=== PATIENT | male | born 1965 | race Caucasian/White ===

== ENCOUNTER 2021-01-26 15:56 | Observation (INO) ==
[2021-01-26] MEDS ORDERED: SODIUM CHLORIDE 0.9% 500 ML IV SCH (18:00)
--- NOTE | 2021-01-26 18:04 | XRay Report ---
XR chest 1V portable HISTORY: weakness COMPARISON: 11/17/2018. FINDINGS: Cardiac silhouette remains mildly enlarged. There are low lung volumes. No new focal lung c onsolidations to suggest pneumonia. No evidence for pulmonary edema. No pleural effusions. No pneumot horax. IMPRESSION: No significant change compared to the prior study. No acute process. ACT 112: Negative or not required by law. Electronically signed by: Toni Vo M.D. 01/26/2021 6:03 PM
--- NOTE | 2021-01-26 18:05 | Emergency Department Note ---
Impression & Plan Episode of shaking, Seizure-like activity, Cough, Anemia ED Provider Note NAME: ERNIE JOHNSON AGE: 55 SEX: M : 1965 ARRIVES VIA: Walk-In INFORMANT: [Patient][] ED PROVIDER(S): [Yoseph Chatman MD] CHIEF COMPLAINT: Choking HISTORY OF PRESENT ILLNESS: The patient is a 55-year-old male presents to the ER with an episode of shaking and choking. The patient had an episode about 5 weeks ago. His heard a noise and he was found sitting with all his clothing intact on the toilet. He was red in the face and trembling, he seemed to be drooling. She thought he might be choking and performed the Heimlich. Patient seemed to start breathing again and in about 5 minutes, he was back to being himself. He did see his doctors office and is scheduled to see a GI doctor for an endoscopy, that is not until next month. Patient did have a normal ECG as an outpatient. Today, the patient had another episode about 2 hours ago. He was sitting in the passenger side of the car and he began coughing. He seemed to almost choke. He took his gum out. He then seemed to stare straight ahead and was shaking. By the time his pulled over, things seem to improve and in about 5 minutes, he was back to himself. He did not bite his tongue, there was no urinary incontinence. Patient has had coughing and choking issues for years. Mostly when he eats. His states that she thinks his esophagus may be narrowed. The patient has no history of seizure, he has no family history of a seizure disorder. His has a history of high cholesterol high and high blood pressure and takes medications for these diagnoses. REVIEW OF SYSTEMS: See HPI for pertinent positives and negatives. A total of ten systems were reviewed and were otherwise negative. PMHx/PSHx: See Below SOCIAL HISTORY: See Below. PHYSICAL EXAM: GENERAL: Patient is in no acute distress. HEENT: No acute trauma, normocephalic atraumatic, mucous membranes moist, no nasal congestion, no scleral icterus. NECK: No stridor, no adenopathy, no meningismus, trachea is midline. LUNGS: Clear to auscultation bilaterally, no wheeze, no rhonchi, breath sounds equal. HEART: Without murmurs gallops or rubs, regular rate and rhythm. ABDOMEN: Soft, nontender, bowel sounds positive, no hernias, no peritonitis. EXTREMITIES: No cyanosis or edema, full range of motion of all the joints wit hout pain or difficulty, no signs for acute trauma. NEUROLOGIC: Oriented x 3, no acute motor or sensory deficits, no focal weakness. No speech slur or facial droop. SKIN: No rash, no jaundice, no diaphoresis. Rectal: Brown stool, heme-negative. DIFFERENTIAL DIAGNOSIS: Infection, dehydration, metabolic abnormality, hypo/hyperglycemia, dysrhythmia, electrolyte disturbance, anemia, hypoxia, cardiac sources, intracerebral event, seizure, toxicologic issues, stroke, TIA, as well as other pathologies. EMERGENCY DEPARTMENT COURSE/PROCEDURES: ECG: Indication was possible dysrhythmia or seizure. The ECG shows a normal sinus rhythm with a rate of 80. QTc is 435. There is no ST elevation, no PVCs. Continuous Cardiac Monitoring: An order was placed for continuous cardiac monitoring. The monitor shows a rate of 78 with normal sinus rhythm. MEDICAL DECISION MAKING: There is no leukocytosis. The patient is anemic with a hemoglobin of 10.6. I did perform a rectal exam, the stool was brown and heme-negative. There is a normal platelet count. Creatinine mildly elevated at 1.45, no signi ficant electrolyte abnormality. No worrisome liver enzyme elevation. ECG shows a sinus rhythm, no acute ischemia. Cardiac enzyme testing x1 is not consistent with acute cardiac injury. Patient appears to be in a euthyroid state. Urinalysis does not show infection. Covid and influenza testing returned negative. Chest film does not show pneumonia or CHF. Brain CT shows no acute bleed or mass-effect. On exam, the patient was comfortable. There were no focal neurologic findings. He was not toxic or febrile. Patient received a 500 cc saline bolus, he has been resting comfortably. I discussed the patient's case with neurology. Hospitalization and a seizure work-up was recommended. The cause for the patient's presentation is unclear. The cause for his anemia is unclear. I am not convinced the 2 things are related though. I did speak to the patient and his , I spoke with case management. The on- call hospitalist was consulted. Past Med/Surg History Medical History HTN (hypertension) Social History Smoking Status: Never smoker Feels Safe at Home: Yes Allergies Allergies Allergy/AdvReac Type Severity Reaction Status Date / Time No Known Allergies Allergy Unverified 01/26/21 19:17 Home Meds Home Medications Medication Instructions Recorded Confirmed cyclobenzaprine 10 mg PO BID PRN 11/17/18 01/26/21 escitalopram oxalate [Lexapro] 20 mg PO DAILY 11/17/18 01/26/21 ramipril [Altace] 10 mg PO QAM 11/17/18 01/26/21 tadalafil [Cialis] 5 mg PO DAILY PRN 11/17/18 01/26/21 aspirin [Aspir-81] 81 mg PO DAILY 01/26/21 01/26/21 coenzyme Q10 [CoQ-10] 100 mg PO DAILY 01/26/21 01/26/21 metoprolol succinate 100 mg PO HS 01/26/21 01/26/21 multivitamin 1 tab PO DAILY 01/26/21 01/26/21 niacin 500 mg PO DAILY 01/26/21 01/26/21 rosuvastatin 10 mg PO HS 01/26/21 01/26/21 Previous Rx's Medication Instructions Recorded sildenafil 100 mg tablet 100 mg PO DAILY PRN #30 tab 07/02/20 Results & Data (ED) Vital Signs Vital Signs - 24 hr 01/26/21 15:59 01/26/21 18:13 01/26/21 19:03 Temperature 36.6 C Temperature Source Temporal Artery Scan Pulse Rate - Lying Pulse Rate - Sitting Pulse Rate - Standing Pulse Rate 84 Pulse Rate [Finger] 79 80 Respiratory Rate 20 24 20 Blood Pressure - Lying Blood Pressure - Sitting Blood Pressure- Standing Blood Pressure 118/75 Blood Pressure [Left Arm] 117/75 126/77 Blood Pressure Mean 89 Blood Pressure Mean [Left Arm] 89 93 Pulse Oximetry 95 97 97 Oxygen Delivery Method Room Air Room Air Room Air Sepsis Recent Fever Within 48 Hours No Sepsis New/Unexplained Change in Mental Status No Sepsis Action Taken by Nursing No Action Required 01/26/21 20:02 01/26/21 20:38 01/26/21 20:42 Temperature Temperature Source Pulse Rate - Lying 83 Pulse Rate - Sitting 84 Pulse Rate - Standing 87 Pulse Rate Pulse Rate [Finger] 80 83 Respiratory Rate 20 20 Blood Pressure - Lying 141/63 H Blood Pressure - Sitting 126/77 Blood Pressure- Standing 144/89 H Blood Pressure Blood Pressure [Left Arm] 129/78 124/78 Blood Pressure Mean Blood Pressure Mean [Left Arm] 95 93 Pulse Oximetry 96 94 Oxygen Delivery Method Room Air Sepsis Recent Fever Within 48 Hours Sepsis New/Unexplained Change in Mental Status Sepsis Action Taken by Nursing 01/26/21 21:31 Temperature Temperature Source Pulse Rate - Lying Pulse Rate - Sitting Pulse Rate - Standing Pulse Rate Pulse Rate [Finger] 79 Respiratory Rate 20 Blood Pressure - Lying Blood Pressure - Sitting Blood Pressure- Standing Blood Pressure Blood Pressure [Left Arm] 119/73 Blood Pressure Mean Blood Pressure Mean [Left Arm] 88 Pulse Oximetry 94 Oxygen Delivery Method Room Air Sepsis Recent Fever Within 48 Hours Sepsis New/Unexplained Change in Mental Status Sepsis Action Taken by Usp Medications Current Medication List: was personally reviewed by me Laboratory Data Attestation: I reviewed the patient's lab results. Result diagrams: 01/26/21 18:07 01/26/21 18:07 Lab Results 01/26/21 01/26/21 01/26/21 Range/Units 18:07 18:07 18:40 WBC 7.31 (4.8-10.8) K/uL RBC 3.57 L (4.7-6.1) M/uL Hgb 10.6 L (14.0-18.0) g/dL Hct 31.6 L (42-52) % MCV 88.5 (80-100) fL MCH 29.7 (25-34) pg MCHC 33.5 (32-36) g/dL RDW Std Deviation 44.1 (36.4-46.3) fL RDW Coeff of Hortencia 13.6 (11.5-14.5) % Plt Count 386 (130-400) K/uL MPV 9.6 (7.4-10.4) fL Immature Gran % (Auto) 0.0 % Neut % (Auto) 42.6 % Lymph % (Auto) 37.6 % [place] % (Auto) 13.5 % Eos % (Auto) 5.5 % Baso % (Auto) 0.8 % Neut # (Auto) 3.11 (1.4-6.5) K/uL Lymph # (Auto) 2.75 (1.2-3.4) K/uL [place] # (Auto) 0.99 H (0.11-0.59) K/uL Eos # (Auto) 0.40 (0-0.5) K/uL Baso # (Auto) 0.06 (0-0.2) K/uL Immature Gran # (Auto) 0.00 (0.00-0.02) K/uL Sodium 137 (136-145) mmol/L Potassium 4.0 (3.5-5.1) mmol/L Chloride 106 (98-107) mmol/L Carbon Dioxide 27 (21-32) mmol/L Anion Gap 4.0 (3-11) BUN 14 (7-18) mg/dl Creatinine 1.45 H (0.6-1.4) mg/dl Est Cr Clr Drug Dosing 60.0 ml/min Est GFR ( Amer) 62.0 Est GFR (Non-Af Amer) 53.5 BUN/Creatinine Ratio 9.5 L (10-20) Glucose 105 H (70-99) mg/dl Calcium 9.1 (8.5-10.1) mg/dl Magnesium 2.4 (1.8-2.4) mg/dl Total Bilirubin 0.3 (0.2-1) mg/dl AST 26 (15-37) U/L ALT 30 (12-78) U/L Alkaline Phosphatase 88 (45-117) U/L Total Creatine Kinase 383 H (39-308) U/L Troponin I < 0.015 (0-0.045) ng/ml Total Protein 7.7 (6.4-8.2) gm/dl Albumin 4.1 (3.4-5.0) gm/dl Globulin 3.6 (2.5-4.0) gm/dl Albumin/Globulin Ratio 1.1 (0.9-2) TSH 2.410 (0.300-4.500) uIu/ml Urine Color Yellow Urine Appearance Clear (Clear) Urine pH 6.5 (4.5-7.5) Ur Specific [place] 1.006 (1.000-1.030) Urine Protein Negative (Negative) Urine Glucose (UA) Negative (Negative) Urine Ketones Negative (Negative) Urine Blood Negative (Negative) Urine Nitrite Negative (Negative) Urine Bilirubin Negative (Negative) Urine Urobilinogen Negative (Negative) Ur Leukocyte Esterase Negative (Negative) COVID-19 Eval Order SARS-CoV-2 (PCR) (Negative) Influenza Type A (PCR) (Neg) Influenza Type B (PCR) (Neg) RSV (RT-PCR) (Neg) 01/26/21 01/26/21 01/26/21 Range/Units 21:09 Unknown Unknown WBC (4.8-10.8) K/uL RBC (4.7-6.1) M/uL Hgb (14.0-18.0) g/dL Hct (42-52) % MCV (80-100) fL MCH (25-34) pg MCHC (32-36) g/dL RDW Std Deviation (36.4-46.3) fL RDW Coeff of Hortencia (11.5-14.5) % Plt Count (130-400) K/uL MPV (7.4-10.4) fL Immature Gran % (Auto) % Neut % (Auto) % Lymph % (Auto) % [place] % (Auto) % Eos % (Auto) % Baso % (Auto) % Neut # (Auto) (1.4-6.5) K/uL Lymph # (Auto) (1.2-3.4) K/uL [place] # (Auto) (0.11-0.59) K/uL Eos # (Auto) (0-0.5) K/uL Baso # (Auto) (0-0.2) K/uL Immature Gran # (Auto) (0.00-0.02) K/uL Sodium (136-145) mmol/L Potassium (3.5-5.1) mmol/L Chloride (98-107) mmol/L Carbon Dioxide (21-32) mmol/L Anion Gap (3-11) BUN (7-18) mg/dl Creatinine (0.6-1.4) mg/dl Est Cr Clr Drug Dosing ml/min Est GFR ( Amer) Est GFR (Non-Af Amer) BUN/Creatinine Ratio (10-20) Glucose (70-99) mg/dl Calcium (8.5-10.1) mg/dl Magnesium (1.8-2.4) mg/dl Total Bilirubin (0.2-1) mg/dl AST (15-37) U/L ALT (12-78) U/L Alkaline Phosphatase (45-117) U/L Total Creatine Kinase (39-308) U/L Troponin I < 0.015 (0-0.045) ng/ml Total Protein (6.4-8.2) gm/dl Albumin (3.4-5.0) gm/dl Globulin (2.5-4.0) gm/dl Albumin/Globulin Ratio (0.9-2) TSH (0.300-4.500) uIu/ml Urine Color Urine Appearance (Clear) Urine pH (4.5-7.5) Ur Specific [place] (1.000-1.030) Urine Protein (Negative) Urine Glucose (UA) (Negative) Urine Ketones (Negative) Urine Blood (Negative) Urine Nitrite (Negative) Urine Bilirubin (Negative) Urine Urobilinogen (Negative) Ur Leukocyte Esterase (Negative) COVID-19 Eval Order [facility]FluRsv at [facility] SARS-CoV-2 (PCR) NEGATIVE (Negative) Influenza Type A (PCR) Negative (Neg) Influenza Type B (PCR) Negative (Neg) RSV (RT-PCR) Negative (Neg) Administered Medications Discontinued Medications Sodium Chloride (Nss) 500 mls @ 999 mls/hr IV .Q31M KULDIP Stop: 01/26/21 18:30 Last Infusion: 01/26/21 18:35 Dose: 0 mls/hr Documented by: [id number] Admin: 01/26/21 18:12 Dose: 999 mls/hr Documented by: [id number] Imaging Data Radiologist's Impression: XR chest 1V portable HISTORY: weakness COMPARISON: 11/17/2018. FINDINGS: Cardiac silhouette remains mildly enlarged. There are low lung volumes. No new focal lung consolidations to suggest pneumonia. No evidence for pulmonary edema. No pleural effusions. No pneumothorax. IMPRESSION: No significant change compared to the prior study. No acute process. HEAD CT NONCONTRAST CT DOSE: 655.73 mGy.cm HISTORY: poss seizure TECHNIQUE: Multiaxial CT images of the head were performed without the use of intravenous contrast. Automated exposure control was utilized for this study. A dose lowering technique was utilized adhering to the principles of ALARA. Comparison: None. Findings: Mild mucosal thickening within the ethmoid air cells. The mastoid air cells are clear. The calvarium and skull base are intact. The ventricles and sulci are within normal limits. There is no mass, hematoma, midline shift, or acute infarct. Impression: No acute intracranial abnormality. Discharge Plan Visit Data Chief Complaint: Choking Stated Complaint: CHOKED, DOESN'T REMEMBER ED Provider: Yoseph Chatman Discharge Problem: Episode of shaking, Seizure-like activity, Cough, Anemia Patient Disposition: Admitted As Inpatient Condition: Good Forms Stand Alone Forms: [facility] [employer] Prescriptions Prescriptions: No Action sildenafil 100 mg tablet 100 mg PO DAILY PRN (Reason: sexual activity) Qty: 30 RF: 11 cyclobenzaprine 10 mg tablet 10 mg PO BID PRN (Reason: Muscle Pain) RF: 0 ramipril [Altace] 10 mg capsule 10 mg PO QAM RF: 0 escitalopram oxalate [Lexapro] 20 mg tablet 20 mg PO DAILY RF: 0 tadalafil [Cialis] 5 mg tablet 5 mg PO DAILY PRN (Reason: Unknown) RF: 0 multivitamin Tablet 1 tab PO DAILY RF: 0 metoprolol succinate 100 mg tablet extended release 24 hr 100 mg PO HS RF: 0 aspirin [Aspir-81] 81 mg Tablet,Delayed Release (Dr/Ec) 81 mg PO DAILY RF: 0 niacin 500 mg Tablet 500 mg PO DAILY RF: 0 coenzyme Q10 [CoQ-10] 100 mg Capsule 100 mg PO DAILY RF: 0 rosuvastatin 10 mg tablet 10 mg PO HS RF: 0 Referrals Referrals: Shayy Smith CRNP [Primary Care Provider] - Discharge Problem: Anemia Qualifiers: Anemia type: unspecified type Qualified Code(s): D64.9 - Anemia, unspecified
[2021-01-26 18:13] LABS: Basophils # (auto) 0.06 K/uL (0-0.2); Basophils % (auto) 0.8 %; Eosinophils % (auto) 5.5 %; Hematocrit (blood only) 31.6 % (42-52); Hemoglobin 10.6 g/dL (14.0-18.0); Lymphocytes # (auto) 2.75 K/uL (1.2-3.4); Lymphocytes % (auto) 37.6 %; Mean Corpuscular Hemoglobin 29.7 pg (25-34); Mean Corpuscular Hgb Conc 33.5 g/dL (32-36); Mean Corpuscular Volume 88.5 fL (80-100); Mean Platelet Volume 9.6 fL (7.4-10.4); Monocytes # (auto) 0.99 K/uL (0.11-0.59); Monocytes % (auto) 13.5 %; Neutrophils # (auto) 3.11 K/uL (1.4-6.5); Neutrophils % (auto) 42.6 %; Platelet Count 386 K/uL (130-400); RDW Coefficient of Variation 13.6 % (11.5-14.5); RDW Standard Deviation 44.1 fL (36.4-46.3); Red Blood Count 3.57 M/uL (4.7-6.1); White Blood Count 7.31 K/uL (4.8-10.8)
[2021-01-26 18:36] LABS: Alanine Aminotransferase 30 U/L (12-78); Albumin Level 4.1 gm/dl (3.4-5.0); Aspartate Aminotransferase 26 U/L (15-37); BUN Creatinine Ratio 9.5 (10-20); Blood Urea Nitrogen 14 mg/dl (7-18); Calcium 9.1 mg/dl (8.5-10.1); Carbon Dioxide 27 mmol/L (21-32); Chloride 106 mmol/L (98-107); Est GFR (Non-African American) 53.5; Glucose 105 mg/dl (70-99); Magnesium 2.4 mg/dl (1.8-2.4); Sodium 137 mmol/L (136-145)
[2021-01-26 18:47] LABS: Albumin Globulin Ratio 1.1 (0.9-2); Alkaline Phosphatase 88 U/L (45-117); Bilirubin,Total 0.3 mg/dl (0.2-1); Globulin 3.6 gm/dl (2.5-4.0); Total Protein 7.7 gm/dl (6.4-8.2); Troponin I < 0.015 ng/ml (0-0.045)
[2021-01-26 18:50] LABS: Appearance Urine Clear (Clear); Bilirubin Urine Negative (Negative); Blood Urine Negative (Negative); Color Urine Yellow; Glucose Urine UA Negative (Negative); Ketones Urine Negative (Negative); Leukocyte Esterase Urine Negative (Negative); Nitrite Urine Negative (Negative); Protein Urine Negative (Negative); Specific Gravity Urine 1.006 (1.000-1.030); Urobilinogen Urine Negative (Negative); pH Urine 6.5 (4.5-7.5)
--- NOTE | 2021-01-26 19:36 | CT Scan Report ---
HEAD CT NONCONTRAST CT DOSE: 655.73 mGy.cm HISTORY: poss seizure TECHNIQUE: Multiaxial CT images of the head were performed without the use of intravenous contrast. A utomated exposure control was utilized for this study. A dose lowering technique was utilized adheri ng to the principles of ALARA. Comparison: None. Findings: Mild mucosal thickening within the ethmoid air cells. The mastoid air cells are clear. The calvarium and skull base are intact. The ventricles and sulci are within normal limits. There is no m ass, hematoma, midline shift, or acute infarct. Impression: No acute intracranial abnormality. ACT 112: Negative or not required by law. Electronically signed by: Toni Vo M.D. 01/26/2021 7:34 PM
[2021-01-26 21:09] LABS: Creatine Kinase 383 U/L (39-308)
--- NOTE | 2021-01-26 21:28 | History & Physical Report ---
Date of Service January 26, 2021 Assessment & Plan (1) Unresponsiveness: Recurrent episodes somewhat related to choking, possible esophageal anatomic pathology/dysfunction Vasovagal event Rule out seizures given some descriptors given by patient . Rule out cardiac pathology Hypertension, slight elevated Hyperlipidemia statin Rx New onset anemia ? Related to GI pathology, stool Hemoccult done at the ER was negative as per ER provider. Initial ARF ? on CKD (outpatient serum creatinine of 1.3 in 2018) BPH as per records OBS Medical telemetry Syncope work-up : TTE, EEG, MRI brain Neurology consult Re: Possible seizures (ER provider already in touch with Dr. Shelton who recommends seizure work-up.) GI consult Re: Recurrent choking episodes N.p.o. until formal swallow eval done by speech therapy Anemia work-up, transfuse PRBC if hemoglobin less than 7 and or for symptomatic anemia Monitor creatinine response to IVF, hold AR inhibitor until creatinine back to baseline DVT prophylaxis. SCDs RE possible GI bleed as source of anemia Full code Patient's requesting update providers. Ms. Billie Lockhart, contact #[phone]. Text document was generated using [employer] voice recognition software. It may contain grammatical or spelling errors. Kindly contact undersigned for clarification of any documentation item in question. History of Present Illness Chief Complaint: Choking episodes as per patient Possible seizures as per Primary Care Provider: DANIELLA Saavedra History obtained from patient, family, and records. Medical history significant for hypertension, hyperlipidemia. Patient noted by to have coughing episodes at home somewhat related to swallowing the last 6 months. Patient denies dysphagia/odynophagia, weight loss, fever, chills, abdominal pain symptoms. Last month, patient had an episode at home where he went to the powder room to drink some water. later noted to be choking which prompted her to do a Heimlich maneuver on him. Transient unresponsiveness with patient stiffening without actual seizures witnessed. Outpatient evaluation for choking episodes/possible endoscopy by GI contemplated as per patient. Schedule moved to next month due to patient COVID-19 exposure. Patient was a passenger in the vehicle being driven by on the way to a local burger place this afternoon. Patient had another choking episode followed by an episode where patient had a blank stare with head and arms shaking. Possible " petit mal seizure" as per . No tongue biting, no incontinence noted. Patient confused for about 5 minutes after episode. Patient denies headache, chest pain, S OB symptoms. History of sports related concussion injuries during his youth as per patient. Denies abdominal pain, black, bloody stools. Medical History as above Surgical History : Urologic procedure, tonsillectomy Family History : Heart disease, DM, stroke Personal/Social history : Non-smoker, occasional EtOH intake, retired high school counselor Allergies Allergy/AdvReac Type Severity Reaction Status Date / Time No Known Allergies Allergy Unverified 01/26/21 19:17 Home Medications Medication Instructions Recorded Confirmed Type cyclobenzaprine 10 mg PO BID PRN 11/17/18 01/26/21 History escitalopram oxalate [Lexapro] 20 mg PO DAILY 11/17/18 01/26/21 History ramipril [Altace] 10 mg PO QAM 11/17/18 01/26/21 History tadalafil [Cialis] 5 mg PO DAILY PRN 11/17/18 01/26/21 History sildenafil 100 mg tablet 100 mg PO DAILY PRN #30 tab 07/02/20 01/26/21 Rx aspirin [Aspir-81] 81 mg PO DAILY 01/26/21 01/26/21 History coenzyme Q10 [CoQ-10] 100 mg PO DAILY 01/26/21 01/26/21 History metoprolol succinate 100 mg PO HS 01/26/21 01/26/21 History multivitamin 1 tab PO DAILY 01/26/21 01/26/21 History niacin 500 mg PO DAILY 01/26/21 01/26/21 History rosuvastatin 10 mg PO HS 01/26/21 01/26/21 History Past Med/Surg History Medical History HTN (hypertension) Social History Smoking Status: Never smoker Second Hand Exposure: No; Do You Dip or Chew Tobacco: No; Tobacco Cessation Education Requested by Patient: No Hx Alcohol Use: No Hx Substance Use: No Preferred Language: Setswana Insulation Manager Required: No Beliefs That Will Affect Care: None Current Living Situation: Spouse Other Information That Helps Us Care for You: No Feels Safe at Home: Yes Safety Concerns: Feels Safe At This Time Assistive Devices: Contacts Review of Systems Review of Systems: As per HPI, all 10 systems reviewed, all other ROS negative Physical Exam Physical Exam: GENERAL: Comfortable, pleasant, obese, no respiratory distress SKIN: Pallor, warm HEENT: Pale palpebral conjunctivae, no ptosis, dry buccal mucosa NECK : Supple, short neck, no tenderness CHEST : CTA, no tenderness HEART : RRR, no obvious murmurs ABDOMEN: Some distention, nontender EXTREMITIES : No LE swelling/tenderness, no other conspicuous deformities noted NEUROLOGIC : Coherent, no facial asymmetry, no other gross focality Results & Data Results & Data ([facility]) Vital Signs (Past 12 Hours) Vital Signs Temp Pulse Pulse Resp BP BP Pulse Ox 01/26/21 20:38 83 20 124/78 94 01/26/21 20:02 80 20 129/78 96 01/26/21 19:03 80 20 126/77 97 01/26/21 18:13 79 24 117/75 97 01/26/21 15:59 36.6 C 84 20 118/75 95 Laboratory Results Laboratory Results WBC 7.31 K/uL (4.8-10.8) 01/26/21 18:07 RBC 3.57 M/uL (4.7-6.1) L 01/26/21 18:07 Hgb 10.6 g/dL (14.0-18.0) L 01/26/21 18:07 Hct 31.6 % (42-52) L 01/26/21 18:07 MCV 88.5 fL (80-100) 01/26/21 18:07 MCH 29.7 pg (25-34) 01/26/21 18:07 MCHC 33.5 g/dL (32-36) 01/26/21 18:07 RDW Std Deviation 44.1 fL (36.4-46.3) 01/26/21 18:07 RDW Coeff of Hortencia 13.6 % (11.5-14.5) 01/26/21 18:07 Plt Count 386 K/uL (130-400) 01/26/21 18:07 MPV 9.6 fL (7.4-10.4) 01/26/21 18:07 Immature Gran % (Auto) 0.0 % 01/26/21 18:07 Neut % (Auto) 42.6 % 01/26/21 18:07 Lymph % (Auto) 37.6 % 01/26/21 18:07 [place] % (Auto) 13.5 % 01/26/21 18:07 Eos % (Auto) 5.5 % 01/26/21 18:07 Baso % (Auto) 0.8 % 01/26/21 18:07 Neut # (Auto) 3.11 K/uL (1.4-6.5) 01/26/21 18:07 Lymph # (Auto) 2.75 K/uL (1.2-3.4) 01/26/21 18:07 [place] # (Auto) 0.99 K/uL (0.11-0.59) H 01/26/21 18:07 Eos # (Auto) 0.40 K/uL (0-0.5) 01/26/21 18:07 Baso # (Auto) 0.06 K/uL (0-0.2) 01/26/21 18:07 Immature Gran # (Auto) 0.00 K/uL (0.00-0.02) 01/26/21 18:07 Sodium 137 mmol/L (136-145) 01/26/21 18:07 Potassium 4.0 mmol/L (3.5-5.1) 01/26/21 18:07 Chloride 106 mmol/L (98-107) 01/26/21 18:07 Carbon Dioxide 27 mmol/L (21-32) 01/26/21 18:07 Anion Gap 4.0 (3-11) 01/26/21 18:07 BUN 14 mg/dl (7-18) 01/26/21 18:07 Creatinine 1.45 mg/dl (0.6-1.4) H 01/26/21 18:07 Est Cr Clr Drug Dosing 60.0 ml/min 01/26/21 18:07 Est GFR ( Amer) 62.0 01/26/21 18:07 Est GFR (Non-Af Amer) 53.5 01/26/21 18:07 BUN/Creatinine Ratio 9.5 (10-20) L 01/26/21 18:07 Glucose 105 mg/dl (70-99) H 01/26/21 18:07 Calcium 9.1 mg/dl (8.5-10.1) 01/26/21 18:07 Magnesium 2.4 mg/dl (1.8-2.4) 01/26/21 18:07 Total Bilirubin 0.3 mg/dl (0.2-1) 01/26/21 18:07 AST 26 U/L (15-37) 01/26/21 18:07 ALT 30 U/L (12-78) 01/26/21 18:07 Alkaline Phosphatase 88 U/L (45-117) 01/26/21 18:07 Total Creatine Kinase 383 U/L (39-308) H 01/26/21 18:07 Troponin I < 0.015 ng/ml (0-0.045) 01/26/21 18:07 Total Protein 7.7 gm/dl (6.4-8.2) 01/26/21 18:07 Albumin 4.1 gm/dl (3.4-5.0) 01/26/21 18:07 Globulin 3.6 gm/dl (2.5-4.0) 01/26/21 18:07 Albumin/Globulin Ratio 1.1 (0.9-2) 01/26/21 18:07 TSH 2.410 uIu/ml (0.300-4.500) 01/26/21 18:07 Urine Color Yellow 01/26/21 18:40 Urine Appearance Clear (Clear) 01/26/21 18:40 Urine pH 6.5 (4.5-7.5) 01/26/21 18:40 Ur Specific [place] 1.006 (1.000-1.030) 01/26/21 18:40 Urine Protein Negative (Negative) 01/26/21 18:40 Urine Glucose (UA) Negative (Negative) 01/26/21 18:40 Urine Ketones Negative (Negative) 01/26/21 18:40 Urine Blood Negative (Negative) 01/26/21 18:40 Urine Nitrite Negative (Negative) 01/26/21 18:40 Urine Bilirubin Negative (Negative) 01/26/21 18:40 Urine Urobilinogen Negative (Negative) 01/26/21 18:40 Ur Leukocyte Esterase Negative (Negative) 01/26/21 18:40 COVID-19 Eval Order CovFluRsv at [facility] 01/26/[address] head: No acute intracranial abnormality. Chest x-ray : Cardiac silhouette remains mildly enlarged. There are low lung volumes. No new focal lung consolidations to suggest pneumonia. No evidence for pulmonary edema. No pleural effusions. No pneumothorax. EKG as per my interpretation : Rate 80, NSR, normal axis, T wave flattening inferior leads
[2021-01-26 21:35] LABS: Influenza A virus by PCR Negative (Neg); Influenza B virus by PCR Negative (Neg); RSV by PCR Negative (Neg); SARS CoV2 RNA(COVID-19) InHosp NEGATIVE (Negative)
[2021-01-26 22:14] LABS: Lyme Ab IgG w/WB Rflx Negative (Negative); Lyme Ab IgM w/WB Rflx Negative (Negative)
[2021-01-27] MEDS ORDERED: ACETAMINOPHEN 325 MG TAB PO PRN (00:30)
[2021-01-27] MEDS ORDERED: PROMETHAZINE HCL 12.5 MG in SODIUM CHLORIDE 0.9% 50 ML IV PRN (00:30)
[2021-01-27] MEDS ORDERED: LORazepam 1 MG/2 ML VIAL IV PRN (00:30)
[2021-01-27] MEDS ORDERED: oxyCODONE HCL IR 5 MG TAB (IMMEDIATE RELEASE) PO PRN (00:30)
[2021-01-27] MEDS: SODIUM CHLORIDE 0.9% 1000ML 1,000 ML IV SCH ×2 (00:53→21:42)
[2021-01-27 06:10] LABS: Basophils # (auto) 0.05 K/uL (0-0.2); Basophils % (auto) 0.8 %; Eosinophils # (auto) 0.49 K/uL (0-0.5); Eosinophils % (auto) 8.3 %; Hematocrit (blood only) 31.1 % (42-52); Hemoglobin 10.2 g/dL (14.0-18.0); Immature Granulocytes # (auto) 0.01 K/uL (0.00-0.02); Immature Granulocytes % (auto) 0.2 %; Lymphocytes # (auto) 2.05 K/uL (1.2-3.4); Lymphocytes % (auto) 34.6 %; Mean Corpuscular Hemoglobin 29.1 pg (25-34); Mean Corpuscular Hgb Conc 32.8 g/dL (32-36); Mean Corpuscular Volume 88.9 fL (80-100); Mean Platelet Volume 9.6 fL (7.4-10.4); Monocytes # (auto) 0.95 K/uL (0.11-0.59); Neutrophils # (auto) 2.38 K/uL (1.4-6.5); Neutrophils % (auto) 40.1 %; Platelet Count 376 K/uL (130-400); RDW Coefficient of Variation 13.8 % (11.5-14.5); RDW Standard Deviation 44.9 fL (36.4-46.3); Reticulocyte % 1.7 % (0.5-2.0); Reticulocytes # 0.06 10^6/uL (0.02-0.10); White Blood Count 5.93 K/uL (4.8-10.8)
[2021-01-27 06:30] LABS: BUN Creatinine Ratio 10.4 (10-20); Calcium 8.9 mg/dl (8.5-10.1); Creatinine Clr Calc Pharmacy 67.4 ml/min; Est GFR (Non-African American) 62.2; Potassium 4.3 mmol/L (3.5-5.1)
[2021-01-27 06:35] LABS: Ferritin 9.2 ng/ml (8-388)
[2021-01-27] MEDS ORDERED: NIACIN 500 MG TAB PO SCH (09:00)
[2021-01-27] MEDS: MULTIVITAMIN TAB PO SCH (09:42)
[2021-01-27] MEDS: ESCITALOPRAM OXALATE 20 MG TAB PO SCH (09:42)
--- NOTE | 2021-01-27 10:06 | Hospitalist Progress Note ---
Date of Service January 27, 2021 Assessment & Plan (1) Unresponsiveness: Recurrent episodes somewhat related to choking, possible esophageal anatomic pathology/dysfunction Vasovagal event Rule out seizures given some descriptors given by patient . Rule out cardiac pathology Hypertension, slight elevated Hyperlipidemia statin Rx New onset anemia ? Related to GI pathology, stool Hemoccult done at the ER was negative as per ER provider. Initial ARF ? on CKD (outpatient serum creatinine of 1.3 in 2018) BPH as per records Labs checked OBS Medical telemetry Syncope work-up : TTE, EEG, MRI brain Neurology consult Re: Possible seizures (ER provider already in touch with Dr. Shelton who recommends seizure work-up.) GI consult Re: Recurrent choking episodes N.p.o. until formal swallow eval done by speech therapy Anemia work-up, transfuse PRBC if hemoglobin less than 7 and or for symptomatic anemia Monitor creatinine response to IVF, hold AR inhibitor until creatinine back to baseline DVT prophylaxis. SCDs RE possible GI bleed as source of anemia Full code ROS-No Headache, No Visual Changes, No Nausea, No Vomiting, No Fever, No Chills, No Neck Pain or Stiffness, No Chest Pain, No Palpitations, No SOB, No LIANG, No Cough, No Sputum, No Wheezing, No Abdominal Pain, No Diarrhea, No Hematemesis, No Hemoptysis, No Unexpected Weight Loss, No Flank pain, No Melena, No Hematochezia, No Frequency, No Urgency, No Burning, No Hematuria, No Rashes, No Diaphoresis. Appetite is Normal Physical Exam Gen-AAO x 3, NAD, Afebrile Head-NCAT, EOMI, PERRLA, Anicteric Sclera, No Posterior Pharyngeal Erythema Neck-Supple, No JVD, No Thyromegaly, No Masses, No LAD, No Bruits Lungs-Clear to Auscultation Bilaterally, No Rales, No Rhonchi, No Wheezing, No Crepitus Chest-No S4, +S1, +S2, No S3, No Murmurs, No Rubs, No Gallops, No Ectopy Abdomen-Soft, Bowel Sounds Present, Non Tender, Non Distended, No Hepatomegaly, No Splenomegaly, No Palpable Masses, No Rebound, No Rigidity, No Guarding Musculoskeletal-Full Range of Motion Bilaterally, No CVAT Extremities-No Cyanosis, No Clubbing, No Edema Nuero-Cranial Nerves II-XII grossly intact, Motor WNL, DTRs WNL, Strength WNL, Non Focal Psych-Normal Mood Admission and Anticipated Discharge Date Admission Date: January 26, 2021 Results & Data Results & Data ([facility]) Vital Signs (Past 12 Hours) Vital Signs Temp Pulse Pulse Resp BP BP Pulse Ox 01/27/21 07:53 36.4 C L 82 18 106/68 96 01/27/21 07:37 81 01/27/21 04:00 36.4 C L 80 18 103/66 93 01/27/21 00:55 85 01/27/21 00:37 36.7 C 81 18 145/81 H 94 01/26/21 23:57 83 20 113/73 96 01/26/21 22:49 79 20 127/76 94 01/26/21 22:13 84 20 120/72 94
[2021-01-27] MEDS ORDERED: GADOBUTROL 65ML VIAL IV ONE (10:54)
--- NOTE | 2021-01-27 11:16 | Magnetic Resonance Report ---
MR brain seizure wo/w con HISTORY: 55 years-old Male poss seizure acute seizure like activity COMPARISON: Head CT 01/26/2021 TECHNIQUE: Multiplanar multisequence MRI of the brain was obtained both with and without the use of 9 mL Gadavist utilizing seizure protocol FINDINGS: Loan Servicing Officer localizer images demonstrate no gross extracranial abnormality. No restricted diffusion to sugg est acute or subacute infarct. No acute intracranial hemorrhage, midline shift, abnormal extra-axial collection, hydrocephalus or intracranial mass. No pathologic blooming artifact. Cerebral venous sinu ses and major arterial flow voids are patent. Mastoid air cells are clear. Mild mucosal thickening of the paranasal sinuses. Skull, orbits and soft tissues are unremarkable. There are a few scattered punctate foci of T2/FLAIR prolongation within the subcortical white matter of the cerebral hemispheres, likely of no clinical significance. There is no abnormal intra-axial or extra-axial enhancement. Mesial temporal lobes appear normal and symmetric. No acute dysplasia or gra y matter heterotopia. IMPRESSION: 1. No acute intracranial abnormality, specifically there is no acute or subacute infarct. 2. No abnormal enhancement. ACT 112: Negative or not required by law. The above report was generated using voice recognition software. It may contain grammatical, syntax o r spelling errors. Electronically signed by: Dez Wheat M.D. 01/27/2021 11:15 AM
--- NOTE | 2021-01-27 12:17 | Gastrointestinal Consultation ---
Date of Consultation January 27, 2021 History of Present Illness Attending Physician: Cole Cr, Reason for consult: dysphagia HPI: 55 yo M admit with episodes of choking associated with ? syncope. His also reports seizure like symptoms. His describes episode 5 weeks ago where he appeared to have a piece of hard candy lodged in his throat; she then heard a "thud" and found him staring blankly with rigid, tremulous arms and flushed face. Episode lasted a few mins, and then resolved with no post-episode confusion. He had a second episode yesterday, precipitated by chewing gum and feeling like gum was lodged in his throat. He has a 1 year h/o mild dysphagia to solids/liquids localized to neck, associated with throat clearing, hoarsness, and coughing; episodes occur approximately 2-3 x daily. PMH: HTN PE: COmfortable, NAD HEENT: oc clear, anicteric. No LAD. CV: RRR Resp: CTA Abd: soft NT Extrem: no edema Neuro: He has almost absent gag, but CN otherwise intact. I watched him swallow sips of water. He has dysphagia with small sips - he has mild transient hoarseness after swallow, followed by throat clearing. A/P: Oropharyngeal dysphagia (Zenker's? neuro abnormality?) ?? Seizure with episode of food impaction? Agree with speech eval and neuro w/u. Would consider esophagram, +/- EGD to screen for motiity disorder/esoph obstruction pending results of these tests. Allergies Allergy/AdvReac Type Severity Reaction Status Date / Time No Known Allergies Allergy Unverified 01/26/21 19:17 Home Medications Medication Instructions Recorded Confirmed Type cyclobenzaprine 10 mg PO BID PRN 11/17/18 01/26/21 History escitalopram oxalate [Lexapro] 20 mg PO DAILY 11/17/18 01/26/21 History ramipril [Altace] 10 mg PO QAM 11/17/18 01/26/21 History tadalafil [Cialis] 5 mg PO DAILY PRN 11/17/18 01/26/21 History sildenafil 100 mg tablet 100 mg PO DAILY PRN #30 tab 07/02/20 01/26/21 Rx aspirin [Aspir-81] 81 mg PO DAILY 01/26/21 01/26/21 History coenzyme Q10 [CoQ-10] 100 mg PO DAILY 01/26/21 01/26/21 History metoprolol succinate 100 mg PO HS 01/26/21 01/26/21 History multivitamin 1 tab PO DAILY 01/26/21 01/26/21 History niacin 500 mg PO DAILY 01/26/21 01/26/21 History rosuvastatin 10 mg PO HS 01/26/21 01/26/21 History Patient History Medical History HTN (hypertension) Social History Smoking Status: Never smoker Second Hand Exposure: No; Do You Dip or Chew Tobacco: No; Tobacco Cessation Education Requested by Patient: No Hx Alcohol Use: No Hx Substance Use: No Preferred Language: Burmese Human Performance Professor Required: No Beliefs That Will Affect Care: None Current Living Situation: Spouse Other Information That Helps Us Care for You: No Feels Safe at Home: Yes Safety Concerns: Feels Safe At This Time Assistive Devices: Contacts Results & Data ([facility]) Vital Signs (Past 12 Hours) Vital Signs Temp Pulse Pulse Resp BP BP Pulse Ox 01/27/21 12:07 36.4 C L 89 20 133/87 97 01/27/21 07:53 36.4 C L 82 18 106/68 96 01/27/21 07:37 81 01/27/21 04:00 36.4 C L 80 18 103/66 93 01/27/21 00:55 85 01/27/21 00:37 36.7 C 81 18 145/81 H 94
--- NOTE | 2021-01-27 14:37 | Consultation Report ---
DATE OF CONSULTATION: 01/27/2021 REASON FOR CONSULTATION: Possible seizure. 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 Yesterday, the patient and his were driving to [place]. The patient was a passenger took gum out of his mouth and then cleared his throat, then he was mute. He was staring ahead, his left arm was lifted slightly off his left leg. Both hands were shaking somewhat, he was mildly rigid. His head shook slightly and his neck appeared strained and he was somewhat red an eyes were bulging. This went on for less than 1 minute. His pulled over to the side of the road. He did not respond to stimulation. When she walked around to the side of the car, he was awake and alert. He was not coughing or choking. He was not pale or sweaty. He was not disoriented or confused and he had not been incontinent or injured. 5 weeks prior, he had been eating a Chewy Gobstopper and he felt when he chewed it up and swallowed it that he had a strangling sensation. He went to the bathroom to get a drink and family heard a thud as he landed on the toilet. His face was red. He was salivating, his eyes were bulging. He was shaking, head was nodding and he was modestly rigid. His performed a Heimlich maneuver, after which he fell and hit his head into a basket. He then spit up both water and phlegm and came to, he was not disoriented. Again he was more red and not pale. So with neither of these episodes per se had he actually coughed. He was not incontinent He has been coughing and choking for the last 1 year. His indicates that he coughs very forcefully. He tends to cough after he is drinking liquids and he chokes frequently on liquids. He does not generally feel lightheaded with coughing. He has felt short of breath and had less energy and felt fatigued. 31 years ago, he had a fainting episode when he was standing and was on the phone with his mother. His mother told him that his sister had had a baby, and that the umbilical cord was wrapped around the babies head. The patient fell to the ground and stiffened, his eyes rolled in the back of his head. It was no seizure activity and he was not confused thereafter. Otherwise, he has no history of seizure. He had several concussions in high school. He has no history of stroke. The only recent medical change is that the ramipril was switched out for another AR inhibitor. Coughing has not ceased. There were 2 instances in the last several years where the patient was sleeping and his left forearm was up in the air and he was striking his . She was able to stop him by waking him and he apologized. She brings this up only because it was the same arm with the same seeming strange motion as the episode reported yesterday. REVIEW OF SYSTEMS: The patient was weighed recently and the nurse told him that he lost 10 pounds. He felt that this was an error. PAST MEDICAL HISTORY: Hypertension. PAST SURGICAL HISTORY: Urologic procedure, tonsillectomy. FAMILY HISTORY: Heart disease, diabetes, stroke. No history of seizure. SOCIAL HISTORY: Nonsmoker. Occasional alcohol. Retired guidance counselor. ALLERGIES: No allergies. MEDICATIONS: Prior to admission, cyclobenzaprine, Lexapro, AR inhibitor, but not ramipril, Cialis, sildenafil, aspirin, CoQ10, metoprolol, multivitamin, niacin, and rosuvastatin. LABORATORY DATA: Notable for H and H being 10.6/31, platelet count 386, creatinine 1.45, glucose 105. CK 383 on admission, 270 today. TSH 2.4. Urinalysis negative. Lyme negative. COVID-[address] of the head, noncontrast, which I have reviewed, is unremarkable. MRI of the brain with and without contrast was unremarkable. PHYSICAL EXAMINATION: GENERAL: The patient is awake and alert. He is an excellent historian. There is normal speech and language. Affect appropriate. NECK: There are no carotid bruits. HEART: No heart murmurs. Heart is regular rate and rhythm. NEUROLOGIC: Pupils are equal, round, reactive to light. The optic nerves are unremarkable. There is normal rascon, motility, facial symmetry. There is full strength, no drift. Normal rapid alternating movements. Normal zdlucm-zm-luxo and urdv-sy-osgb. Gait is unremarkable. Sensation is intact to light touch. No tremor or bradykinesias IMPRESSION: Query seizure versus syncope related to coughing or esophageal spasm or obstruction. PLAN: EEG, GI consultation. It will be very helpful to know if there is anything structural interfering with swallowing that could cause pain or a sense of obstruction and subsequent syncopal seizure. We will follow with you. NUVIA
--- NOTE | 2021-01-27 15:13 | Electrocardiogram Report ---
Test Reason : Blood Pressure : / mmHG Vent. Rate : 080 BPM Atrial Rate : 080 BPM P-R Int : 156 ms QRS Dur : 088 ms QT Int : 378 ms P-R-T Axes : 043 030 019 degrees QTc Int : 435 ms Normal sinus rhythm Normal ECG When compared with ECG of 17-NOV-2018 19:34, No significant change was found Confirmed by Nasir Das ([id number]) on 01/27/2021 3:12:36 PM Referred By: REFERRED SELF Confirmed By:Nasir Das
[2021-01-27] MEDS ORDERED: METOPROLOL SUCC 25MG EXT REL TAB PO SCH (21:00)
[2021-01-27] MEDS ORDERED: ROSUVASTATIN CALCIUM 10 MG TAB PO SCH (21:00)
--- NOTE | 2021-01-28 07:23 | Ultrasound Report ---
BILATERAL CAROTID DOPPLER STUDY HISTORY: Possible seizure. COMPARISON: None. TECHNIQUE: Real-time, grayscale, and color Doppler sonography of the carotid arteries was performed. Imaging reviewed in the transverse and longitudinal planes. All measurements were calculated based on NASCET criteria. FINDINGS: Antegrade flow is seen in the bilateral vertebral arteries. The brachial pressures are hemodynamically similar. Mild calcified plaque within the left carotid bulb. There is also moderate focal calcified plaque wit hin the right external carotid artery. The peak systolic velocity within the right ICA is 87 cm/s. The right systolic ratio is 0.8. The peak systolic velocity within the left ICA is 87 cm/s. The left systolic ratio is 0.7. Mildly elevated peak systolic velocities within the bilateral external carotid arteries which may rep resent mild stenosis. IMPRESSION: No hemodynamically significant stenosis seen within the bilateral common or internal carotid arteries . Suspect mild stenosis of the bilateral external carotid arteries. ACT 112: Negative or not required by law. Electronically signed by: Toni Vo M.D. 01/28/2021 7:22 AM
[2021-01-28 07:37] LABS: Hematocrit (blood only) 32.2 % (42-52); Hemoglobin 10.4 g/dL (14.0-18.0); Mean Corpuscular Hemoglobin 28.8 pg (25-34); Mean Corpuscular Hgb Conc 32.3 g/dL (32-36); Mean Corpuscular Volume 89.2 fL (80-100); Mean Platelet Volume 9.5 fL (7.4-10.4); Platelet Count 362 K/uL (130-400); RDW Coefficient of Variation 13.7 % (11.5-14.5); RDW Standard Deviation 45.4 fL (36.4-46.3); Red Blood Count 3.61 M/uL (4.7-6.1); White Blood Count 7.33 K/uL (4.8-10.8)
[2021-01-28 08:08] LABS: BUN Creatinine Ratio 10.8 (10-20); Creatinine Clr Calc Pharmacy 73.9 ml/min; Est GFR (African American) 81.1; Potassium 3.8 mmol/L (3.5-5.1)
[2021-01-28] MEDS: MULTIVITAMIN TAB PO SCH (08:26)
[2021-01-28] MEDS: ESCITALOPRAM OXALATE 20 MG TAB PO SCH (08:26)
--- NOTE | 2021-01-28 09:55 | Gastroenterology Progress Note ---
Date of Service January 28, 2021 Assessment & Plan (1) Seizure-like activity: (2) Dysphagia: Patient with a year of intermittent dysphagia symptoms. admitted with ?seizure activity thought to be associated with an episode of dysphagia. - Agree with barium swallow today. - Once neurology eval done and pending results of the barium esophagram, will consider EGD later this week. Admission and Anticipated Discharge Date Admission Date: January 26, 2021 Subjective OK this AM. Going to have a barium swallow today. Evaluated by neurology yesterday afternoon. Planning on EEG. Review of Systems Review of Systems: All systems reviewed & are unremarkable except as noted in HPI & below Physical Exam Constitutional: WD/WN, vitals as above Respiratory: normal respiratory effort, lungs clear to auscultation Cardiovascular: RRR, no murmur, no edema Gastrointestinal (Abdomen): normal bowel sounds, soft, nontender, no hepatosplenomegaly Results & Data ([place]) Vital Signs (Past 12 Hours) Vital Signs Temp Pulse Pulse Resp BP Pulse Ox 01/28/21 08:03 36.7 C 79 20 127/75 94 01/28/21 04:00 36.6 C 90 18 104/68 92 01/28/21 00:03 36.8 C 86 18 104/62 95 01/27/21 23:00 87
--- NOTE | 2021-01-28 10:06 | Fluoroscopy Report ---
FL barium swallow CLINICAL HISTORY: r/o esophageal dysfunction COMPARISON STUDY: No previous studies for comparison. Fluoroscopy time: 1.1 minutes. Number of fluoroscopic images: 18. FINDINGS: There was mild esophageal dysmotility. No esophageal mass or stricture was identified. 13 m m barium tablet passed into the stomach. Mucosal detail was mildly diminished on this examination. No reflux was elicited. No hiatal hernia was identified. IMPRESSION: 1. No esophageal mass or stricture identified. Mucosal detail mildly compromised on this exam. 2. Mild esophageal dysmotility. ACT 112: Negative or not required by law. Electronically signed by: Pato Tadeo M.D. 01/28/2021 10:05 AM
[2021-01-28] MEDS: SODIUM CHLORIDE 0.9% 1000ML 1,000 ML IV SCH (10:15)
--- NOTE | 2021-01-28 11:38 | Discharge Summary ---
Date of Service January 28, 2021 Admission HPI Per Admitting Provider History obtained from patient, family, and records. Medical history significant for hypertension, hyperlipidemia. Patient noted by to have coughing episodes at home somewhat related to swallowing the last 6 months. Patient denies dysphagia/odynophagia, weight loss, fever, chills, abdominal pain symptoms. Last month, patient had an episode at home where he went to the powder room to drink some water. later noted to be choking which prompted her to do a Heimlich maneuver on him. Transient unresponsiveness with patient stiffening without actual seizures witnessed. Outpatient evaluation for choking episodes/possible endoscopy by GI contemplated as per patient. Schedule moved to next month due to patient COVID-19 exposure. Patient was a passenger in the vehicle being driven by on the way to a local burger place this afternoon. Patient had another choking episode followed by an episode where patient had a blank stare with head and arms shaking. Possible " petit mal seizure" as per . No tongue biting, no incontinence noted. Patient confused for about 5 minutes after episode. Patient denies headache, chest pain, S OB symptoms. History of sports related concussion injuries during his youth as per patient. Denies abdominal pain, black, bloody stools. Medical History as above Surgical History : Urologic procedure, tonsillectomy Family History : Heart disease, DM, stroke Personal/Social history : Non-smoker, occasional EtOH intake, retired high school counselor Admission Exam Per Admitting Provider GENERAL: Comfortable, pleasant, obese, no respiratory distress SKIN: Pallor, warm HEENT: Pale palpebral conjunctivae, no ptosis, dry buccal mucosa NECK : Supple, short neck, no tenderness CHEST : CTA, no tenderness HEART : RRR, no obvious murmurs ABDOMEN: Some distention, nontender EXTREMITIES : No LE swelling/tenderness, no other conspicuous deformities noted NEUROLOGIC : Coherent, no facial asymmetry, no other gross focality Principal Diagnosis Unresponsiveness: Vasovagal event Hypertension Hyperlipidemia New onset anemia Discharge Exam See below Discharge Data Allergies Allergy/AdvReac Type Severity Reaction Status Date / Time No Known Allergies Allergy Unverified 01/26/21 19:17 Consultations 01/26/21 20:03 ED Decision to Admit Stat 01/27/21 00:30 Consult Gastroenterology Routine Consult Neurology Routine Ordered Studies 01/26/21 17:46 CT head/brain wo con Stat 01/27/21 00:30 MR brain seizure wo/w con Routine 01/27/21 12:35 US carotid doppler BI Routine 01/28/21 07:40 [place] barium swallow Routine Current Diagnoses Dysphagia, unspecified (01/26/21) Other symptoms and signs involving cognitive functions and awareness (01/26/21) Unspecified convulsions (01/26/21) Allergies No Known Allergies Allergy (Unverified 01/26/21 19:17) Height/Weight/Isolation Height 5 ft 5 in Weight 91.4 kg Chemistry 01/26/21 01/27/21 01/28/21 18:07 05:37 07:07 Sodium 137 139 138 Potassium 4.0 4.3 3.8 Chloride 106 108 H 107 Carbon Dioxide 27 29 25 Anion Gap 4.0 2.0 L 7.0 BUN 14 13 13 Creatinine 1.45 H 1.28 1.16 Glucose 105 H 92 86 Urinalysis 01/26/21 18:40 Urine Color Yellow Urine Appearance Clear Urine pH 6.5 Ur Specific [place] 1.006 Urine Protein Negative Urine Glucose (UA) Negative Urine Ketones Negative Urine Blood Negative Urine Nitrite Negative Urine Bilirubin Negative Hospital Course (1) Unresponsiveness: Recurrent episodes somewhat related to choking, possible esophageal anatomic pathology/dysfunction Vasovagal event Rule out seizures given some descriptors given by patient . EEG prior to DC, IV Venofer prior to DC Hypertension, slight elevated Hyperlipidemia statin Rx New onset anemia? Related to GI pathology, stool Hemoccult done at the ER was negative as per ER provider. Fe studies c/w Fe Def Anemia, IV Venofer before DC ARF? on CKD (outpatient serum creatinine of 1.3 in 2018) BPH as per records Labs checked Syncope work-up : TTE, EEG, MRI brain Neurology on case: Possible seizures EEG (ER provider already in touch with Dr. Shelton who recommends seizure work-up.) GI consult Re: Recurrent choking episodes, EGD Outpatient Swallow eval done by speech therapy today Monitor creatinine response to IVF, hold AR inhibitor until creatinine back to baseline DVT prophylaxis. SCDs RE possible GI bleed as source of anemia Full code ROS-No Headache, No Visual Changes, No Nausea, No Vomiting, No Fever, No Chills, No Neck Pain or Stiffness, No Chest Pain, No Palpitations, No SOB, No LIANG, No Cough, No Sputum, No Wheezing, No Abdominal Pain, No Diarrhea, No Hematemesis, No Hemoptysis, No Unexpected Weight Loss, No Flank pain, No Melena, No Hematochezia, No Frequency, No Urgency, No Burning, No Hematuria, No Rashes, No Diaphoresis. Appetite is Normal Physical Exam Gen-AAO x 3, NAD, Afebrile Head-NCAT, EOMI, PERRLA, Anicteric Sclera, No Posterior Pharyngeal Erythema Neck-Supple, No JVD, No Thyromegaly, No Masses, No LAD, No Bruits Lungs-Clear to Auscultation Bilaterally, No Rales, No Rhonchi, No Wheezing, No Crepitus Chest-No S4, +S1, +S2, No S3, No Murmurs, No Rubs, No Gallops, No Ectopy Abdomen-Soft, Bowel Sounds Present, Non Tender, Non Distended, No Hepatomegaly, No Splenomegaly, No Palpable Masses, No Rebound, No Rigidity, No Guarding Musculoskeletal-Full Range of Motion Bilaterally, No CVAT Extremities-No Cyanosis, No Clubbing, No Edema Nuero-Cranial Nerves II-XII grossly intact, Motor WNL, DTRs WNL, Strength WNL, Non Focal Psych-Normal Mood Total Time Total Time Spent Total Time Spent (In Minutes): 45 mins Discharge Plan Discharge Items Patient Disposition: Home - Self-Care Reason For Visit: UNRESPONSIVENESS Discharge Diagnosis: Unresponsiveness: Vasovagal event Hypertension Hyperlipidemia New onset anemia Condition on Discharge: Good Activity: Resume your previous activity Lifting: Gradually increase as tolerated Bathing: No limitations Sexual Activity: When tolerated Driving/Machine Use: No limitations Weightbearing: Full weightbearing Non-emergency contact: Primary Care Provider, Experimental Technician and Neurologist Call non-emergency contact if: you have any medication questions Follow-up/Referrals: Anurag Wetzel CRNP [Nurse Practitioner] - (Date & Time 02/07/2021 10:00 AM Provider DANIELLA Toro Department Gastroenterology, [facility] ) Shayy Smith CRNP [Primary Care Provider] - 01/31/21 10:45 am Luli Zacarias MD [Physician] - (2-3 weeks) Diet: Heart Healthy Addtl Attending Provider Instructions: None Pending Studies at Discharge: Yes Studies:: EEG, IV Venofer Stand-Alone Forms: [facility], Smoking Cessation Medications and DC Order Prescriptions: New metoprolol succinate 25 mg Tablet Extended Release 24 Hr 25 mg PO HS Qty: 30 RF: 0 omeprazole 20 mg capsule,delayed release(DR/EC) 20 mg PO DAILY Qty: 30 RF: 0 Continued sildenafil 100 mg tablet 100 mg PO DAILY PRN (Reason: sexual activity) Qty: 30 RF: 11 cyclobenzaprine 10 mg tablet 10 mg PO BID PRN (Reason: Muscle Pain) RF: 0 ramipril [Altace] 10 mg capsule 10 mg PO QAM RF: 0 escitalopram oxalate [Lexapro] 20 mg tablet 20 mg PO DAILY RF: 0 tadalafil [Cialis] 5 mg tablet 5 mg PO DAILY PRN (Reason: Unknown) RF: 0 multivitamin Tablet 1 tab PO DAILY RF: 0 aspirin [Aspir-81] 81 mg Tablet,Delayed Release (Dr/Ec) 81 mg PO DAILY RF: 0 niacin 500 mg Tablet 500 mg PO DAILY RF: 0 coenzyme Q10 [CoQ-10] 100 mg Capsule 100 mg PO DAILY RF: 0 rosuvastatin 10 mg tablet 10 mg PO HS RF: 0 Discontinued metoprolol succinate 100 mg tablet extended release 24 hr 100 mg PO HS RF: 0 Discharge Orders: Discharge Order (Routine); Ordered 01/28/21 Ordered By: Cole Cr Admission Data Admit Date/Time: 01/26/21 21:39 Attending Provider: Cole Cr Admit Provider: Mikel Barbosa Primary Care Provider: Shayy Smith Other Providers: Mikel Barbosa ; Anurag Wetzel ; Mickie Muro ; Cathy Ring ; Mary Xiong ; Zack Ron ; Nadeem Partida ; Aidee Canales ; Nasir Villarreal ; Hemant Lujan ; Zaria Hurd ; Leslie Randolph ; Génesis Wynn ; Nilsa Alejandra ; Jessica Lindo ; Luli Zacarias
[2021-01-28] MEDS ORDERED: IRON SUCROSE 300 MG in SODIUM CHLORIDE 0.9% 250 ML IV SCH (14:00)
--- NOTE | 2021-01-29 09:12 | Electroencephalogram ---
EEG Procedure Note Date of Service January 29, 2021 Start / End Times Start Time: 12:04 End Time: 12:[address] Cole Cr History A 55-year-old male with an unresponsive episode. EEG performed for evaluation of epileptiform activity. Home Medication List Medication Instructions Recorded Confirmed Type cyclobenzaprine 10 mg PO BID PRN 11/17/18 01/26/21 History escitalopram oxalate [Lexapro] 20 mg PO DAILY 11/17/18 01/26/21 History ramipril [Altace] 10 mg PO QAM 11/17/18 01/26/21 History tadalafil [Cialis] 5 mg PO DAILY PRN 11/17/18 01/26/21 History sildenafil 100 mg tablet 100 mg PO DAILY PRN #30 tab 07/02/20 01/26/21 Rx aspirin 81 mg PO DAILY 01/26/21 01/26/21 History coenzyme Q10 [CoQ-10] 100 mg PO DAILY 01/26/21 01/26/21 History multivitamin 1 tab PO DAILY 01/26/21 01/26/21 History niacin 500 mg PO DAILY 01/26/21 01/26/21 History rosuvastatin 10 mg PO HS 01/26/21 01/26/21 History metoprolol succinate 25 mg PO HS #30 tab 01/28/21 Rx omeprazole 20 mg PO DAILY #30 cap 01/28/21 Rx Inpatient Medication List Discontinued Medications Escitalopram Oxalate (Escitalopram Oxalate 20 Mg Tab) 20 mg PO DAILY [facility] Stop: 02/26/21 08:59 Last Admin: 01/28/21 08:26 Dose: 20 mg Documented by: [id number] Admin: 01/27/21 09:42 Dose: 20 mg Documented by: [id number] Gadobutrol (Gadobutrol 65ml Vial) 9 ml IV ONCE ONE Stop: 01/27/21 10:55 Last Admin: 01/27/21 10:55 Dose: 9 ml Documented by: [id number] Sodium Chloride (Nss) 500 mls @ 999 mls/hr IV .Q31M KULDIP Stop: 01/26/21 18:30 Last Infusion: 01/26/21 18:35 Dose: 0 mls/hr Documented by: [id number] Admin: 01/26/21 18:12 Dose: 999 mls/hr Documented by: [id number] Sodium Chloride (Nss 1000ml) 1,000 mls @ 60 mls/hr IV .[id number] KULDIP Stop: 02/26/21 00:29 Last Admin: 01/28/21 10:15 Dose: Not Given Documented by: [id number] Infusion: 01/28/21 10:13 Dose: 0 mls/hr Documented by: [id number] Admin: 01/27/21 21:42 Dose: 60 mls/hr Documented by: [id number] Infusion: 01/27/21 19:44 Dose: 60 mls/hr Documented by: [id number] Infusion: 01/27/21 11:11 Dose: 60 mls/hr Documented by: [id number] Infusion: 01/27/21 09:00 Dose: 0 mls/hr Documented by: [id number] Admin: 01/27/21 00:53 Dose: 60 mls/hr Documented by: [id number] Iron Sucrose 300 mg/ Sodium (Chloride) 265 mls @ 176.667 mls/hr IV 1400 KULDIP Stop: 01/28/21 18:00 Last Infusion: 01/28/21 15:16 Dose: 0 mls/hr Documented by: [id number] Admin: 01/28/21 13:44 Dose: 177 mls/hr Documented by: [id number] Metoprolol Succinate (Metoprolol Succ 25mg Ext Rel Tab) 25 mg PO HS KULDIP Stop: 02/26/21 20:59 Last Admin: 01/27/21 21:42 Dose: 25 mg Documented by: [id number] Multivitamins (Multivitamin Tab) 1 tab PO DAILY KULDIP Stop: 02/26/21 08:59 Last Admin: 01/28/21 08:26 Dose: 1 tab Documented by: [id number] Admin: 01/27/21 09:42 Dose: 1 tab Documented by: [id number] Description This is a 21 electrode EEG with a single channel dedicated to limited EKG. The electrodes were placed in accordance with the International 10-20 system. REPORT: At the onset of the EEG the patient is awake. The background is symmetric and well organized. There is a normal anterior to posterior gradient. The posterior dominant rhythm is 10-11 Hz. There is low amplitude beta activity in the frontal head region. Drowsiness is characterized by increased theta activity, decreased blink rate, and reduced myogenic artifact. Photic stimulation does not induce any abnormalities. No stage 2 sleep transients are recorded. IMPRESSION: This is a normal awake and drowsy routine EEG. There is no evidence of focal slowing or epileptiform activity.
== END 2021-01-28 15:15 | disposition home or self-care (01) ==
LOC: ED 15:56 → 2W 15:56